=== PATIENT | male | born 1975 | race Caucasian/White ===

== ENCOUNTER 2017-10-02 17:32 | Emergency (ER) | payer SELFPAY ==
[~2017-10-02] VITALS: Ht 167.6 cm; Wt 70.0 kg
[2017-10-02 17:40] VITALS: BP 144/90
== END 2017-10-03 03:36 | disposition left against medical advice (07) ==
LOC: ER 22:35
DX: Z53.21 Procedure and treatment not carried out due to patient leaving prior to being seen by health care provider (principal)

== ENCOUNTER 2017-10-10 00:39 | Emergency (ER) | payer SELFPAY ==
[~2017-10-10] VITALS: Ht 170.2 cm; Wt 71.0 kg
[2017-10-10] MEDS ORDERED: ONDANSETRON HCL 4MG/2ML VIAL IV ONE (03:30)
[2017-10-10 03:51] LABS: EOSINOPHILS % 0.1 % (0.0-5.0); HEMATOCRIT. 37.3 % (42.0-52.0); HEMOGLOBIN. 12.2 g/dL (14.0-18.0); LYMPHOCYTES % 34.3 % (20.0-50.0); MEAN CORPUSCULAR HEMOGLOBIN 26.8 pg (28.0-32.0); MEAN CORPUSCULAR VOLUME 81.9 fL (80.0-94.0); MEAN PLATELET VOLUME 7.7 fl (7.4-10.4); MONOCYTES % 9.1 % (2.0-8.0); NEUTROPHILS % 55.5 % (40.0-76.0); PLATELET 150 x1000/uL (130-400); RED BLOOD CELL COUNT 4.55 mill/uL (4.7-6.1); RED CELL DISTRIBUTION WIDTH 19.9 % (11.6-14.6)
[2017-10-10 04:02] LABS: PROTHROMBIN TIME 10.3 sec (9.4-11.6)
[2017-10-10 04:16] LABS: CHLORIDE 100 mEq/L (98-107); ETHANOL BLOOD 291 mg/dL
[2017-10-10 06:00] LABS: CLARITY URINE CLEAR (CLEAR); COLOR URINE DARK YELLOW (YELLOW); KETONES URINE 2+ (NEGATIVE); LEUKOCYTE ESTERASE URINE TRACE (NEGATIVE); NITRITE URINE NEGATIVE (NEGATIVE); OCCULT BLOOD URINE NEGATIVE (NEGATIVE); PH URINE 5.5 (4.5-8.0); PROTEIN URINE 3+ (NEGATIVE); SPECIFIC GRAVITY URINE 1.033 (1.005-1.030)
[2017-10-10 06:59] VITALS: BP 124/76
== END 2017-10-10 07:20 | disposition home or self-care (01) ==
LOC: ER 01:53
DX: F10.129 Alcohol abuse with intoxication, unspecified (principal); K70.10 Alcoholic hepatitis without ascites; Y90.8 Blood alcohol level of 240 mg/100 ml or more; I10 Essential (primary) hypertension; Z59.0 Homelessness
CPT/HCPCS: 36415; 74018; 80053; 81001; 83690; 85025; 85610; 96374; 99285; G0482; J2405; J7030; Z7610

== ENCOUNTER 2017-10-10 07:48 | Emergency (ER) | payer SELFPAY ==
[~2017-10-10] VITALS: Ht 167.6 cm; Wt 66.0 kg
[2017-10-10] MEDS ORDERED: ONDANSETRON HCL 4MG/2ML VIAL IV ONE (08:30)
[2017-10-10] MEDS ORDERED: SODIUM CHLORIDE 0.9% 1,000 ML IV ONE (08:30)
[2017-10-10] MEDS ORDERED: CHLORPROMAZINE HCL 25 MG TABLET PO ONE (08:30)
[2017-10-10 11:03] VITALS: BP 120/89
== END 2017-10-10 11:36 | disposition home or self-care (01) ==
LOC: ER 08:12
DX: R06.6 Hiccough (principal); R11.2 Nausea with vomiting, unspecified; F10.129 Alcohol abuse with intoxication, unspecified; I10 Essential (primary) hypertension; Y90.9 Presence of alcohol in blood, level not specified; Z59.0 Homelessness
CPT/HCPCS: 96374; 99284; J2405; J7030; Q0161

== ENCOUNTER 2018-02-08 21:18 | Emergency (ER) | payer SELFPAY ==
[~2018-02-08] VITALS: Ht 170.2 cm; Wt 82.0 kg
[2018-02-08 21:25] VITALS: BP 132/78
== END 2018-02-09 01:43 | disposition left against medical advice (07) ==
LOC: ER 21:25
DX: R11.10 Vomiting, unspecified (principal); Z53.21 Procedure and treatment not carried out due to patient leaving prior to being seen by health care provider

== ENCOUNTER 2018-06-01 22:06 | Emergency (ER) | payer SELFPAY ==
[~2018-06-01] VITALS: Ht 170.2 cm; Wt 73.0 kg
[2018-06-01] MEDS ORDERED: ONDANSETRON HCL 4MG/2ML INJ IV STA (23:10)
[2018-06-01] MEDS ORDERED: SODIUM CHLORIDE 0.9% 1,000 ML IV ONE (23:10)
[2018-06-01] MEDS ORDERED: MAGNESIUM/ALUMINUM HYDROXIDE/SIMETHICONE 30ML UDC PO STA (23:10)
[2018-06-01] MEDS ORDERED: LORAZEPAM 2MG/ML CPJ IV ONE (23:15)
[2018-06-01] MEDS ORDERED: FOLIC ACID 1 MG, THIAMINE HCL 100 MG, MVI, ADULT NO.1 10 ML in DEXTROSE 5% WATER 1,000 ML IV ONE ×4 (23:15)
[2018-06-01 23:53] LABS: HEMATOCRIT. 28.5 % (42.0-52.0); HEMOGLOBIN. 9.3 g/dL (14.0-18.0); MEAN CORPUSCULAR HEMOGLOBIN 25.3 pg (28.0-32.0); MEAN CORPUSCULAR VOLUME 77.8 fL (80.0-94.0); MEAN PLATELET VOLUME 7.7 fl (7.4-10.4); PLATELET 214 x1000/uL (130-400); RED BLOOD CELL COUNT 3.66 mill/uL (4.7-6.1); RED CELL DISTRIBUTION WIDTH 24.7 % (11.6-14.6)
[2018-06-01 23:56] LABS: CHLORIDE 109 mEq/L (98-107)
[2018-06-01 23:57] LABS: INR 0.9; PROTHROMBIN TIME 9.4 sec (9.1-11.1)
[2018-06-02] LABS: ETHANOL BLOOD 261 mg/dL
[2018-06-02 00:03] LABS: AMMONIA 33 uMol/L (<32)
[2018-06-02 00:05] LABS: CREATINE KINASE 373 IU/L (39-308)
[2018-06-02 04:43] LABS: PLATELET ESTIMATE NORMAL
[2018-06-02 06:10] VITALS: BP 114/71
== END 2018-06-02 06:24 | disposition home or self-care (01) ==
LOC: ER 22:06
DX: F10.229 Alcohol dependence with intoxication, unspecified (principal); R03.0 Elevated blood-pressure reading, without diagnosis of hypertension; Y90.8 Blood alcohol level of 240 mg/100 ml or more
CPT/HCPCS: 36415; 80053; 82140; 82550; 84443; 84484; 85025; 85610; 93005; 96365; 96366; 96375; 99285; G0482; J2060; J2405; J3411; J3490; J7030; J7070

== ENCOUNTER 2018-06-07 17:47 | Emergency (ER) | payer SELFPAY ==
[~2018-06-07] VITALS: Ht 165.1 cm; Wt 64.0 kg
[2018-06-07 17:51] VITALS: BP 111/72
== END 2018-06-07 21:50 | disposition left against medical advice (07) ==
LOC: ER 17:47
DX: R04.0 Epistaxis (principal); Z53.21 Procedure and treatment not carried out due to patient leaving prior to being seen by health care provider

== ENCOUNTER 2018-06-08 19:27 | Emergency (ER) | payer SELFPAY ==
[~2018-06-08] VITALS: Ht 172.7 cm; Wt 73.0 kg
[2018-06-08] MEDS ORDERED: SODIUM CHLORIDE 0.9% 1,000 ML IV ONE (22:54)
[2018-06-08 23:55] LABS: BASOPHILS % 2.1 % (0.0-2.0); EOSINOPHILS % 0.8 % (0.0-5.0); HEMATOCRIT. 30.2 % (42.0-52.0); HEMOGLOBIN. 9.9 g/dL (14.0-18.0); LYMPHOCYTES % 43.8 % (20.0-50.0); MEAN CORPUSCULAR HEMOGLOBIN 24.9 pg (28.0-32.0); MEAN CORPUSCULAR VOLUME 76.1 fL (80.0-94.0); MEAN PLATELET VOLUME 6.9 fl (7.4-10.4); MONOCYTES % 7.1 % (2.0-8.0); NEUTROPHILS % 46.2 % (40.0-76.0); PLATELET 552 x1000/uL (130-400); RED BLOOD CELL COUNT 3.97 mill/uL (4.7-6.1); RED CELL DISTRIBUTION WIDTH 23.6 % (11.6-14.6)
[2018-06-09 00:02] LABS: CHLORIDE 108 mEq/L (98-107); PROTHROMBIN TIME 9.9 sec (9.1-11.1)
[2018-06-09 00:09] LABS: ETHANOL BLOOD 269 mg/dL
[2018-06-09 00:39] LABS: CLARITY URINE CLEAR (CLEAR); COLOR URINE YELLOW (YELLOW); KETONES URINE NEGATIVE (NEGATIVE); LEUKOCYTE ESTERASE URINE NEGATIVE (NEGATIVE); NITRITE URINE NEGATIVE (NEGATIVE); OCCULT BLOOD URINE NEGATIVE (NEGATIVE); PROTEIN URINE 2+ (NEGATIVE); SPECIFIC GRAVITY URINE 1.027 (1.005-1.030); UROBILINOGEN URINE 0.2 E.U./dL (0.2-1.0)
[2018-06-09 04:13] VITALS: BP 122/74
[2018-06-09 05:08] LABS: PLATELET ESTIMATE INCREASED
== END 2018-06-09 04:24 | disposition home or self-care (01) ==
LOC: ER 19:27
DX: R10.33 Periumbilical pain (principal); R11.2 Nausea with vomiting, unspecified; R74.0 Nonspecific elevation of levels of transaminase and lactic acid dehydrogenase [LDH]; D64.9 Anemia, unspecified; F10.129 Alcohol abuse with intoxication, unspecified; Y90.8 Blood alcohol level of 240 mg/100 ml or more
CPT/HCPCS: 36415; 74176; 80053; 81003; 83690; 85025; 85610; 96360; 99285; G0482; J7030; Z7610

== ENCOUNTER 2018-06-15 13:26 | Emergency (ER) | payer SELFPAY ==
[~2018-06-15] VITALS: Ht 162.6 cm; Wt 68.0 kg
[2018-06-15 14:41] LABS: BASOPHILS % 0.5 % (0.0-2.0); EOSINOPHILS % 0.1 % (0.0-5.0); HEMATOCRIT. 31.6 % (42.0-52.0); HEMOGLOBIN. 10.1 g/dL (14.0-18.0); LYMPHOCYTES % 41.5 % (20.0-50.0); MEAN CORPUSCULAR HEMOGLOBIN 24.3 pg (28.0-32.0); MEAN CORPUSCULAR VOLUME 75.6 fL (80.0-94.0); MEAN PLATELET VOLUME 7.5 fl (7.4-10.4); MONOCYTES % 7.5 % (2.0-8.0); NEUTROPHILS % 50.4 % (40.0-76.0); PLATELET 334 x1000/uL (130-400); RED BLOOD CELL COUNT 4.17 mill/uL (4.7-6.1); RED CELL DISTRIBUTION WIDTH 23.8 % (11.6-14.6)
[2018-06-15 14:45] LABS: CHLORIDE 104 mEq/L (98-107)
[2018-06-15 14:46] LABS: PROTHROMBIN TIME 9.7 sec (9.1-11.1)
[2018-06-15 14:59] LABS: ETHANOL BLOOD 370 mg/dL
[2018-06-15 15:11] LABS: PLATELET ESTIMATE NORMAL
[2018-06-15 15:55] VITALS: BP 107/78
== END 2018-06-15 16:08 | disposition home or self-care (01) ==
LOC: ER 13:35
DX: M25.532 Pain in left wrist (principal); F10.229 Alcohol dependence with intoxication, unspecified; D50.9 Iron deficiency anemia, unspecified; R74.0 Nonspecific elevation of levels of transaminase and lactic acid dehydrogenase [LDH]; I10 Essential (primary) hypertension; Y90.8 Blood alcohol level of 240 mg/100 ml or more
CPT/HCPCS: 36415; 73110; 80053; 85025; 85610; 86850; 86900; 86901; 99285; G0482

== ENCOUNTER 2018-06-15 21:12 | Emergency (ER) | payer SELFPAY ==
[~2018-06-15] VITALS: Ht 162.6 cm; Wt 68.0 kg
[2018-06-16 01:12] VITALS: BP 122/88
== END 2018-06-16 02:30 | disposition home or self-care (01) ==
LOC: ER 21:12
DX: Z53.21 Procedure and treatment not carried out due to patient leaving prior to being seen by health care provider (principal)

== ENCOUNTER 2019-05-25 22:42 | Emergency (ER) | payer SELFPAY ==
[~2019-05-25] VITALS: Ht 167.6 cm; Wt 64.0 kg
[2019-05-26] MEDS ORDERED: ONDANSETRON HCL 4MG/2ML INJ IV STA (03:08)
[2019-05-26] MEDS ORDERED: SODIUM CHLORIDE 0.9% 1,000 ML IV ONE (03:08)
[2019-05-26] MEDS ORDERED: FAMOTIDINE 20MG/2ML VIAL IV ONE (03:15)
[2019-05-26 03:34] LABS: CHLORIDE 108 mEq/L (98-107)
[2019-05-26 03:36] LABS: BASOPHILS % 0.7 % (0.0-2.0); EOSINOPHILS % 0.6 % (0.0-5.0); HEMATOCRIT. 36.7 % (42.0-52.0); MEAN CORPUSCULAR HEMOGLOBIN 24.6 pg (28.0-32.0); MEAN CORPUSCULAR VOLUME 74.9 fL (80.0-94.0); MEAN PLATELET VOLUME 8.5 fl (7.4-10.4); MONOCYTES % 13.4 % (2.0-8.0); NEUTROPHILS % 42.3 % (40.0-76.0); PLATELET 118 x1000/uL (130-400); RED CELL DISTRIBUTION WIDTH 23.2 % (11.6-14.6)
[2019-05-26 04:19] LABS: ETHANOL BLOOD 387 mg/dL
[2019-05-26 05:23] LABS: CLARITY URINE CLEAR (CLEAR); COLOR URINE DARK YELLOW (YELLOW); KETONES URINE 1+ (NEGATIVE); LEUKOCYTE ESTERASE URINE NEGATIVE (NEGATIVE); NITRITE URINE NEGATIVE (NEGATIVE); OCCULT BLOOD URINE NEGATIVE (NEGATIVE); PROTEIN URINE 2+ (NEGATIVE); SPECIFIC GRAVITY URINE 1.026 (1.005-1.030)
[2019-05-26 05:36] LABS: *AMPHETAMINES SCREEN URINE NEGATIVE (NEGATIVE); *BARBITURATES SCREEN URINE NEGATIVE (NEGATIVE); *BENZODIAZEPINES SCREEN URINE PRESUMTIVE POSITIVE (NEGATIVE); *COCAINE SCREEN URINE NEGATIVE (NEGATIVE)
[2019-05-26 05:37] LABS: CANNABINOID URINE SCREEN NEGATIVE (NEGATIVE); METHADONE URINE SCREEN NEGATIVE (NEGATIVE); OPIATES URINE SCREEN NEGATIVE (NEGATIVE); PHENCYCLIDINE URINE SCREEN NEGATIVE (NEGATIVE)
[2019-05-26] MEDS ORDERED: ONDANSETRON 4MG ODT PO NR (11:25)
[2019-05-26] MEDS ORDERED: CHLORDIAZEPOXIDE 25MG CAPSULE ONE (16:24)
[2019-05-26 16:55] VITALS: BP 118/71
== END 2019-05-26 18:34 | disposition home or self-care (01) ==
LOC: ER 22:42
DX: F10.129 Alcohol abuse with intoxication, unspecified (principal); I10 Essential (primary) hypertension; F12.10 Cannabis abuse, uncomplicated; R10.84 Generalized abdominal pain; R11.2 Nausea with vomiting, unspecified; Y90.9 Presence of alcohol in blood, level not specified
CPT/HCPCS: 36415; 74176; 80053; 80305; 80320; 81003; 83690; 85025; 96361; 96374; 96375; 99284; J2405; J3490; J7030; G0480

== ENCOUNTER 2022-03-26 15:22 | Emergency (ER) | payer MEDICAID ==
[~2022-03-26] VITALS: Ht 167.6 cm; Wt 78.0 kg
[2022-03-26 15:36] VITALS: BP 137/95
== END 2022-03-26 17:01 | disposition left against medical advice (07) ==
LOC: ER 15:22
DX: Z53.21 Procedure and treatment not carried out due to patient leaving prior to being seen by health care provider (principal)